=== PATIENT | male | born 1940 | race Caucasian/White ===

== ENCOUNTER 2019-05-27 23:30 | Inpatient (IN) ==
[2019-05-28 01:12] LABS: Basophils % 0.3 % (0.0-0.8); Eosinophils # 0.1 10*3/uL (0.0-0.87); Eosinophils % 0.6 % (0.00-10.9); Hematocrit 34.3 VOL% (42.0-52.0); Hemoglobin 11.8 GM/DL (14.0-18.0); Immature Granulocytes % 0.9 %; Mean Corpuscular HGB Conc 34.4 GM/DL (32-36); Mean Corpuscular Volume 85.8 FL (87-102); Mean Platelet Volume 9.4 FL (9.6-12.0); Monocytes % 9.3 % (1.7-12.7); Neutrophils % 79.9 % (38.7-73.9); Platelet Count 324 T/CUMM (130-400); Red Cell Distribution Width 13.2 % (9.3-17.3); White Blood Count 10.8 T/CUMM (4-12)
[2019-05-28 01:32] LABS: Alanine Aminotransferase 26 U/L (16-61); Albumin 2.8 G/DL (3.4-5.0); Alkaline Phosphatase 70 U/L (45-117); Aspartate Amino Transferase 16 U/L (0-37); Bilirubin,Total < 0.39 MG/DL (0.2-1.0); Blood Urea Nitrogen 26 MG/DL (7-18); Calcium 7.7 MG/DL (8.5-10.1); Glucose 153 MG/DL (74-106); Osmolality,Calculated 282.7 MOS/KG (273-304); Total Protein 5.7 G/DL (6.4-8.3)
[2019-05-28] MEDS ORDERED: POTASSIUM CHLORIDE 20 MEQ TABLET PO STA (02:47)
[2019-05-28] MEDS ORDERED: MAGNESIUM SULF RIDER 4 GM in PREMIX 1 EACH IV PRN (04:33)
[2019-05-28] MEDS ORDERED: ONDANSETRON 4 MG/2 ML VIAL IV PRN (04:34)
[2019-05-28 04:50] LABS: Risk Ratio 2.69; VLDL CHOLESTEROL 31.8 MG/DL
[2019-05-28 05:48] LABS: Basophils % 0.3 % (0.0-0.8); Eosinophils # 0.1 10*3/uL (0.0-0.87); Eosinophils % 1.2 % (0.00-10.9); Hematocrit 37.5 VOL% (42.0-52.0); Hemoglobin 12.4 GM/DL (14.0-18.0); Immature Granulocytes % 0.8 %; Immature Granulocytes Absolute 0.09 #; Lymphocytes # 1.5 10*3/uL (1.4-4.0); Lymphocytes % 13.3 % (21.2-54.2); Mean Corpuscular HGB Conc 33.1 GM/DL (32-36); Mean Platelet Volume 9.2 FL (9.6-12.0); Monocytes % 9.9 % (1.7-12.7); Neutrophils % 74.5 % (38.7-73.9); Platelet Count 327 T/CUMM (130-400); Red Blood Count 4.31 MC/CUMM (3.8-5.5); Red Cell Distribution Width 13.2 % (9.3-17.3); White Blood Count 11.4 T/CUMM (4-12)
[2019-05-28 06:20] LABS: % Iron Saturation 14.2 % (18-50)
[2019-05-28 06:57] LABS: Sedimentation Rate-Westergren 18 MM/HR (0-20)
[2019-05-28] MEDS: SODIUM CHLORIDE 0.9% 1,000 ML IV SCH (07:02)
[2019-05-28 07:11] LABS: Folate 13.9 NG/ML (5.4-24.0); Vitamin B12 774 PG/ML (211-911)
[2019-05-28] MEDS: ENOXAPARIN 40 MG/0.4 ML SYRINGE SUBCUT SCH (09:20)
[2019-05-28] MEDS: SERTRALINE 25 MG TABLET PO SCH (09:43)
[2019-05-28 11:05] LABS: Amorphous Crystals,Urine Occasional /HPF (Few); Apearance,Urine Slightly Hazy (Clear); Bacteria,Urine Occasional /HPF (Few); Bilirubin,Urine Negative (Negative); Blood, Urine Negative (Negative); Glucose,Urine (UA) 50 mg/dL (Negative); Granular Casts,Urine 5 /LPF (0-1); Ketones,Urine Negative (Negative); Mucus,Urine Occasional /LPF (Occasional); Nitrite,Urine Negative (Negative); Protein,Urine 30 MG/DL; RBC,Urine 2 /HPF (0-4); Squamous Epithelial Cell,Urine Occasional /HPF (0-10); Urine Color Yellow (Yellow); Urine Specific Gravity 1.014 (1.001-1.035); Urine Urobilinogen < 2.0 EU/DL (0.2-1.0); WBC,Urine 4 /HPF (0-6)
[2019-05-28 11:11] LABS: Barbiturates Screen,Urine Negative (Negative); Benzodiazepines Screen,Urine Negative (Negative); Cannabinoid Screen,Urine Negative (Negative); Opiate Screen,Urine Positive (Negative); Phencyclidine Screen,Urine Negative (Negative)
[2019-05-28] MEDS ORDERED: TISSUE ADHESIVE 1 EACH APPLICATOR TOP ONE (15:37)
[2019-05-28] MEDS ORDERED: BUPIVACAINE MPF 0.25% /EPI 30 ML VIAL ONE (15:37)
[2019-05-28] MEDS ORDERED: LIDOCAINE MPF 1% /EPI 30 ML VIAL ONE (15:37)
[2019-05-28] MEDS ORDERED: CLINDAMYCIN INJ 900 MG in PREMIX 1 EACH IV ONE (16:00)
[2019-05-28] MEDS ORDERED: MOXIFLOXACIN 0.5% OPH SOLN 3 ML BOTTLE ONE (16:08)
[2019-05-28] MEDS ORDERED: TUBERCULIN SKIN TEST 0.1 ML SYRINGE INTRADERM ONE (17:30)
[2019-05-28] MEDS ORDERED: fentaNYL 100 MCG/2 ML VIAL ONE (18:12)
[2019-05-28] MEDS ORDERED: SEVOFLURANE 1 UNIT/15 MINUTE INH ONE (18:12)
[2019-05-28] MEDS ORDERED: PHENYLEPHRINE 1 MG/10 ML SYRINGE IV ONE (18:12)
[2019-05-28] MEDS ORDERED: SUCCINYLCHOLINE 200 MG/10 ML VIAL ONE (18:12)
[2019-05-28] MEDS ORDERED: PROPOFOL 200 MG/20 ML VIAL IV ONE (18:12)
[2019-05-28] MEDS ORDERED: LACTATED RINGERS 1,000 ML IV ONE (18:12)
[2019-05-28 18:30] LABS: Amorphous Crystals,Urine Occasional /HPF (Few); Apearance,Urine CLOUDY (Clear); Bilirubin,Urine Negative (Negative); Blood, Urine Small mg/dL (Negative); Glucose,Urine (UA) 50 mg/dL (Negative); Ketones,Urine Negative (Negative); Mucus,Urine Occasional /LPF (Occasional); Nitrite,Urine Negative (Negative); Protein,Urine 30 MG/DL; RBC,Urine 3 /HPF (0-4); Squamous Epithelial Cell,Urine Occasional /HPF (0-10); Urine Color Yellow (Yellow); Urine Specific Gravity 1.013 (1.001-1.035); Urine Urobilinogen < 2.0 EU/DL (0.2-1.0); WBC,Urine 2 /HPF (0-6)
[2019-05-28] MEDS: ACETAMINOPHEN 325 MG TABLET PO PRN (22:46)
[2019-05-28] MEDS: MOXIFLOXACIN 0.5% OPH SOLN 3 ML BOTTLE BOTH EYES SCH (22:51)
[2019-05-29 06:17] LABS: Basophils # 0.1 10*3/uL (0.0-0.2); Basophils % 0.3 % (0.0-0.8); Eosinophils % 0.1 % (0.00-10.9); Hematocrit 32.4 VOL% (42.0-52.0); Hemoglobin 10.6 GM/DL (14.0-18.0); Immature Granulocytes % 0.6 %; Immature Granulocytes Absolute 0.12 #; Lymphocytes # 1.2 10*3/uL (1.4-4.0); Lymphocytes % 6.2 % (21.2-54.2); Mean Corpuscular HGB Conc 32.7 GM/DL (32-36); Mean Corpuscular Volume 87.6 FL (87-102); Mean Platelet Volume 9.5 FL (9.6-12.0); Monocytes % 6.3 % (1.7-12.7); Neutrophils % 86.5 % (38.7-73.9); Platelet Count 308 T/CUMM (130-400); Red Cell Distribution Width 13.5 % (9.3-17.3); White Blood Count 19.1 T/CUMM (4-12)
[2019-05-29 06:57] LABS: Calcium 7.4 MG/DL (8.5-10.1); Osmolality,Calculated 286.3 MOS/KG (273-304)
[2019-05-29] MEDS: SERTRALINE 25 MG TABLET PO SCH (08:58)
[2019-05-29] MEDS: MOXIFLOXACIN 0.5% OPH SOLN 3 ML BOTTLE BOTH EYES SCH ×3 (08:58→21:59)
[2019-05-29] MEDS: ENOXAPARIN 40 MG/0.4 ML SYRINGE SUBCUT SCH (08:59)
[2019-05-29 09:20] LABS: Hemoglobin A1 (Alkaline) 97.5 % (96.5-98.5); Hemoglobin A2 (Alkaline) 2.5 % (1.5-3.5)
[2019-05-29] MEDS: SODIUM CHLORIDE 0.9% 1,000 ML IV SCH (11:55)
[2019-05-29] MEDS ORDERED: diphenhydrAMINE CAP 25 MG CAPSULE PO ONE (14:00)
[2019-05-29] MEDS: MAGNESIUM SULF RIDER 2 GM in PREMIX 1 EACH IV PRN (18:11)
[2019-05-29] MEDS: SODIUM CHLOR 0.9% KCL 20 MEQ 20 MEQ/1,000 ML BAG IV SCH (18:11)
[2019-05-29] MEDS: diphenhydrAMINE CAP 50 MG CAPSULE PO SCH (20:31)
[2019-05-29] MEDS: ACETAMINOPHEN 325 MG TABLET PO PRN (20:33)
[2019-05-30 05:38] LABS: Basophils # 0.1 10*3/uL (0.0-0.2); Basophils % 0.3 % (0.0-0.8); Eosinophils % 0.1 % (0.00-10.9); Hematocrit 31.9 VOL% (42.0-52.0); Hemoglobin 10.6 GM/DL (14.0-18.0); Immature Granulocytes % 0.8 %; Immature Granulocytes Absolute 0.15 #; Lymphocytes # 1.3 10*3/uL (1.4-4.0); Mean Corpuscular HGB Conc 33.2 GM/DL (32-36); Mean Corpuscular Volume 86.9 FL (87-102); Mean Platelet Volume 9.5 FL (9.6-12.0); Monocytes % 6.8 % (1.7-12.7); Platelet Count 309 T/CUMM (130-400); Red Blood Count 3.67 MC/CUMM (3.8-5.5); Red Cell Distribution Width 13.6 % (9.3-17.3); White Blood Count 18.3 T/CUMM (4-12)
[2019-05-30 05:59] LABS: Calcium 7.6 MG/DL (8.5-10.1); Osmolality,Calculated 284.4 MOS/KG (273-304)
[2019-05-30] MEDS ORDERED: SODIUM PHOSPHATE INJ 30 MMOL in SODIUM CHLORIDE 0.9% 250 ML IV ONE (08:18)
[2019-05-30] MEDS: ENOXAPARIN 40 MG/0.4 ML SYRINGE SUBCUT SCH (08:53)
[2019-05-30] MEDS: diphenhydrAMINE CAP 50 MG CAPSULE PO SCH ×2 (08:54→21:44)
[2019-05-30] MEDS: SERTRALINE 25 MG TABLET PO SCH (08:54)
[2019-05-30] MEDS: POTASSIUM CHLORIDE 20 MEQ TABLET PO PRN ×3 (08:54→17:35)
[2019-05-30] MEDS: MOXIFLOXACIN 0.5% OPH SOLN 3 ML BOTTLE BOTH EYES SCH ×3 (09:04→21:44)
[2019-05-30] MEDS: amLODIPine 2.5 MG TABLET PO SCH (13:25)
[2019-05-30] MEDS: SODIUM CHLOR 0.9% KCL 20 MEQ 20 MEQ/1,000 ML BAG IV SCH ×2 (17:34→18:04)
[2019-05-31] MEDS: POTASSIUM CHLORIDE 20 MEQ TABLET PO PRN ×5 (00:53→21:09)
[2019-05-31 05:26] LABS: Basophils # 0.1 10*3/uL (0.0-0.2); Basophils % 0.3 % (0.0-0.8); Eosinophils # 0.1 10*3/uL (0.0-0.87); Eosinophils % 0.3 % (0.00-10.9); Hematocrit 30.4 VOL% (42.0-52.0); Immature Granulocytes % 0.9 %; Immature Granulocytes Absolute 0.16 #; Lymphocytes # 1.4 10*3/uL (1.4-4.0); Lymphocytes % 8.3 % (21.2-54.2); Mean Corpuscular HGB Conc 32.9 GM/DL (32-36); Mean Corpuscular Volume 86.1 FL (87-102); Mean Platelet Volume 9.5 FL (9.6-12.0); Monocytes % 5.4 % (1.7-12.7); Neutrophils % 84.8 % (38.7-73.9); Platelet Count 323 T/CUMM (130-400); Red Blood Count 3.53 MC/CUMM (3.8-5.5); Red Cell Distribution Width 13.9 % (9.3-17.3); White Blood Count 17.1 T/CUMM (4-12)
[2019-05-31] MEDS: SODIUM CHLOR 0.9% KCL 20 MEQ 20 MEQ/1,000 ML BAG IV SCH ×2 (06:49→11:19)
[2019-05-31] MEDS: ENOXAPARIN 40 MG/0.4 ML SYRINGE SUBCUT SCH (09:53)
[2019-05-31] MEDS: SERTRALINE 25 MG TABLET PO SCH (09:53)
[2019-05-31] MEDS: amLODIPine 2.5 MG TABLET PO SCH (09:53)
[2019-05-31] MEDS: diphenhydrAMINE CAP 50 MG CAPSULE PO SCH ×2 (09:53→21:09)
[2019-05-31] MEDS: MOXIFLOXACIN 0.5% OPH SOLN 3 ML BOTTLE BOTH EYES SCH ×3 (09:59→21:13)
[2019-05-31] MEDS ORDERED: ACETAMINOPHEN/CODEINE 300-30 MG TABLET PO PRN (11:32)
[2019-05-31] MEDS ORDERED: POLYVINYL ALCOHOL 1.4% OPH SOLN 15 ML BOTTLE BOTH EYES PRN (11:36)
[2019-05-31] MEDS ORDERED: hydrOXYzine HCL 10 MG TABLET PO PRN (11:41)
[2019-05-31] MEDS: DULoxetine 30 MG CAPSULE PO SCH (12:07)
[2019-05-31] MEDS: DONEPEZIL 5 MG TABLET PO SCH (12:07)
[2019-05-31] MEDS: ATORVASTATIN 40 MG TABLET PO SCH (12:07)
[2019-05-31] MEDS: PSYLLIUM POWDER 3.7 GM/PACK PO SCH (12:08)
[2019-05-31] MEDS ORDERED: SODIUM PHOSPHATE INJ 30 MMOL in SODIUM CHLORIDE 0.9% 250 ML IV ONE (12:22)
[2019-05-31] MEDS: cefTRIAXone 1,000 MG in SYRINGE 1 EACH IV SCH (13:19)
[2019-05-31] MEDS ORDERED: BISACODYL 5 MG TABLET PO PRN (13:41)
[2019-05-31] MEDS: DOCUSATE SODIUM 100 MG CAPSULE PO SCH ×2 (15:08→21:09)
[2019-05-31] MEDS: GABAPENTIN 300 MG CAPSULE PO SCH (21:09)
[2019-06-01] MEDS: SODIUM CHLOR 0.9% KCL 20 MEQ 20 MEQ/1,000 ML BAG IV SCH (06:48)
[2019-06-01] MEDS: amLODIPine 2.5 MG TABLET PO SCH (08:08)
[2019-06-01] MEDS: diphenhydrAMINE CAP 50 MG CAPSULE PO SCH ×2 (08:08→23:05)
[2019-06-01] MEDS: GABAPENTIN 300 MG CAPSULE PO SCH ×2 (08:08→23:05)
[2019-06-01] MEDS: SERTRALINE 25 MG TABLET PO SCH (08:08)
[2019-06-01] MEDS: PSYLLIUM POWDER 3.7 GM/PACK PO SCH (08:08)
[2019-06-01] MEDS: POTASSIUM CHLORIDE 20 MEQ TABLET PO PRN ×2 (08:08→16:37)
[2019-06-01] MEDS: DULoxetine 30 MG CAPSULE PO SCH (08:08)
[2019-06-01] MEDS: ENOXAPARIN 40 MG/0.4 ML SYRINGE SUBCUT SCH (08:08)
[2019-06-01] MEDS: ATORVASTATIN 40 MG TABLET PO SCH (08:08)
[2019-06-01] MEDS: DONEPEZIL 5 MG TABLET PO SCH (08:08)
[2019-06-01] MEDS: DOCUSATE SODIUM 100 MG CAPSULE PO SCH ×3 (08:08→23:05)
[2019-06-01] MEDS: MOXIFLOXACIN 0.5% OPH SOLN 3 ML BOTTLE BOTH EYES SCH ×3 (09:41→23:06)
[2019-06-01 10:16] LABS: Basophils % 0.2 % (0.0-0.8); Eosinophils % 0.2 % (0.00-10.9); Hematocrit 31.2 VOL% (42.0-52.0); Hemoglobin 10.6 GM/DL (14.0-18.0); Immature Granulocytes % 1.1 %; Immature Granulocytes Absolute 0.16 #; Lymphocytes # 0.8 10*3/uL (1.4-4.0); Lymphocytes % 5.3 % (21.2-54.2); Mean Corpuscular Volume 87.6 FL (87-102); Mean Platelet Volume 9.4 FL (9.6-12.0); Monocytes % 3.7 % (1.7-12.7); Neutrophils % 89.5 % (38.7-73.9); Platelet Count 353 T/CUMM (130-400); Red Blood Count 3.56 MC/CUMM (3.8-5.5); Red Cell Distribution Width 13.9 % (9.3-17.3)
[2019-06-01] MEDS: cefTRIAXone 1,000 MG in SYRINGE 1 EACH IV SCH (12:59)
[2019-06-02] MEDS: SODIUM CHLOR 0.9% KCL 20 MEQ 20 MEQ/1,000 ML BAG IV SCH (01:45)
[2019-06-02 05:02] LABS: Basophils % 0.3 % (0.0-0.8); Eosinophils # 0.1 10*3/uL (0.0-0.87); Eosinophils % 0.9 % (0.00-10.9); Hematocrit 31.7 VOL% (42.0-52.0); Hemoglobin 10.5 GM/DL (14.0-18.0); Immature Granulocytes % 0.9 %; Immature Granulocytes Absolute 0.12 #; Lymphocytes # 1.4 10*3/uL (1.4-4.0); Lymphocytes % 10.8 % (21.2-54.2); Mean Corpuscular HGB Conc 33.1 GM/DL (32-36); Mean Corpuscular Volume 87.6 FL (87-102); Mean Platelet Volume 9.3 FL (9.6-12.0); Monocytes % 6.2 % (1.7-12.7); Neutrophils % 80.9 % (38.7-73.9); Platelet Count 357 T/CUMM (130-400); Red Blood Count 3.62 MC/CUMM (3.8-5.5); Red Cell Distribution Width 13.8 % (9.3-17.3)
[2019-06-02 05:23] LABS: Calcium 7.7 MG/DL (8.5-10.1); Osmolality,Calculated 283.1 MOS/KG (273-304)
[2019-06-02] MEDS: amLODIPine 2.5 MG TABLET PO SCH (08:07)
[2019-06-02] MEDS: ENOXAPARIN 40 MG/0.4 ML SYRINGE SUBCUT SCH (08:08)
[2019-06-02] MEDS: DONEPEZIL 5 MG TABLET PO SCH (08:08)
[2019-06-02] MEDS: diphenhydrAMINE CAP 50 MG CAPSULE PO SCH (08:08)
[2019-06-02] MEDS: SERTRALINE 25 MG TABLET PO SCH (08:08)
[2019-06-02] MEDS: PSYLLIUM POWDER 3.7 GM/PACK PO SCH (08:08)
[2019-06-02] MEDS: ATORVASTATIN 40 MG TABLET PO SCH (08:08)
[2019-06-02] MEDS: DOCUSATE SODIUM 100 MG CAPSULE PO SCH (08:08)
[2019-06-02] MEDS: DULoxetine 30 MG CAPSULE PO SCH (08:08)
[2019-06-02] MEDS: MOXIFLOXACIN 0.5% OPH SOLN 3 ML BOTTLE BOTH EYES SCH (08:09)
[2019-06-02] MEDS: GABAPENTIN 300 MG CAPSULE PO SCH (08:09)
[2019-06-02] MEDS ORDERED: POTASSIUM CHLORIDE 20 MEQ TABLET PO SCH (10:52)
[2019-06-02] MEDS: MAGNESIUM SULF RIDER 2 GM in PREMIX 1 EACH IV PRN (10:56)
[2019-06-02 12:01] VITALS: BP 119/63
[2019-06-02] MEDS ORDERED: MAGNESIUM CHLORIDE 64 MG TABLET PO SCH (21:00)
[2019-06-03] MEDS ORDERED: CEFUROXIME 250 MG TABLET PO SCH (09:00)
== END 2019-06-02 12:52 | disposition swing bed (61) | DRG 351 ==
LOC: N.ED 23:30 → N.EDINP 05-28 04:16 → N.5E 05-28 04:56
PROVIDERS: ADMIT Internal Medicine; ATTEND Internal Medicine